=== PATIENT | female | born 1990 | race Caucasian/White ===

== ENCOUNTER 2018-11-25 00:10 | Inpatient (IN) | payer BC ==
[~2018-11-25 00:10] MED LIST: DEXTROSE 5%-LACTATED RINGERS 1,000 ML IV SCH
[2018-11-25 01:43] LABS: BASO % 1.3 % (0-2.0); HEMOGLOBIN 10.8 GM/dL (10.7-15.3); MCH 33.6 pg (25.7-33.7); MCHC 34.9 g/dl (32.0-36.0); MEAN CELL VOLUME 96.5 fl (80-96); MEAN PLT VOLUME 9.8 fl (7.5-11.1); NEUT % 73.7 % (42.8-82.8); PLATELET COUNT 193 K/MM3 (134-434); RBC 3.21 M/mm3 (3.60-5.2); RDW 13.1 % (11.6-15.6); WHITE BLOOD COUNT 11.4 K/mm3 (4.0-10.0)
[2018-11-25 02:07] LABS: ANION GAP 7 MMOL/L (8-16); BLOOD UREA NITROGEN 11 mg/dL (7-18); CALCIUM 8.8 mg/dL (8.5-10.1); CHLORIDE 106 mmol/L (98-107); CO2 24 mmol/L (21-32); CREATININE 0.5 mg/dL (0.55-1.3); GLUCOSE,RANDOM 69 mg/dL (74-106); POTASSIUM 3.8 mmol/L (3.5-5.1); SODIUM 137 mmol/L (136-145)
[2018-11-25 02:15] LABS: INR 0.91 (0.83-1.09); PROTHROMBIN TIME (PATIENT) 10.7 SEC (9.7-13.0)
[2018-11-25 02:17] LABS: ACTIVATED PTT 26.1 SECONDS (25.2-36.5)
--- NOTE | 2018-11-25 03:07 | HP ---
Past Medical History - Admission Chief Complaint: Postdates History of Present Illness: 28 yo @ 40.6 weeks gestation, EDC 11/19/18, sent for induction of labor. Upon admission she was 4cm dilated. She was the artificially ruptured due to evidence of a late deceleration. History Source: Patient Limitations to Obtaining History: No Limitations - Past Medical History ...: 1 ...Para: 0 ...EDC by Lucina: 11/19/18 - Past Surgical History Past Surgical History: Yes: None Hx Myomectomy: No Hx Transabdominal Cerclage: No - Smoking History Smoking history: Current every day smoker Have you smoked in the past 12 months: Yes Aproximately how many cigarettes per day: 6 - Alcohol/Substance Use Hx Alcohol Use: No History of Substance Use: reports: None - Social History Usual Living Arrangement: Yes: With Spouse History of Recent Travel: No Home Medications - Allergies Allergies/Adverse Reactions: Allergies Allergy/AdvReac Type Severity Reaction Status Date / Time albuterol Allergy Intermediate Verified 05/29/15 06:58 BLEACH AdvReac Intermediate Uncoded 05/29/15 06:59 - Home Medications Home Medications: Ambulatory Orders Noreth A-Et Estra/Fe Fumarate [Loestrin 24 Fe Tablet] 1 tab PO DAILY 05/25/15 Ibuprofen [Motrin -] 600 mg PO QID PRN #28 tablet 05/29/15 metroNIDAZOLE 0.75% VAG. GEL [Metrogel 0.75% *Vaginal Gel* -] 1 applic VG HS #1 tube 05/29/15 Family Disease History - Family Disease History Family History: Unremarkable Review of Systems - Review of Systems Constitutional: reports: No Symptoms Eyes: reports: No Symptoms HENT: reports: No Symptoms Neck: reports: No Symptoms Cardiovascular: reports: No Symptoms Respiratory: reports: No Symptoms Gastrointestinal: reports: No Symptoms Genitourinary: reports: Pain Breasts: reports: No Symptoms Reported Musculoskeletal: reports: No Symptoms Integumentary: reports: No Symptoms Neurological: reports: No Symptoms Endocrine: reports: No Symptoms Hematology/Lymphatic: reports: No Symptoms Psychiatric: reports: No Symptoms Pain Intensity: 2 Physical Exam - Maternity Vital Signs: Vital Signs Temperature 97.7 F 11/25/18 01:00 Pulse Rate 97 H 11/25/18 01:00 Respiratory Rate 20 11/25/18 01:00 Blood Pressure 110/55 L 11/25/18 01:00 O2 Sat by Pulse Oximetry (%) Constitutional: Yes: Well Nourished Eyes: Yes: Conjunctiva Clear HENT: Yes: Atraumatic Neck: Yes: Supple Cardiovascular: Yes: Regular Rate and Rhythm Lungs: Clear to auscultation - Abdominal Exam/OB Number of Fetuses: Single Presentation: Vertex Intensity: Mild - Vaginal Exam/OB Dilatation (cm): 4 Effacement (%): 80 Amniotic Membrane Status: Ruptured Amniotic Fluid: Yes: Clear Presentation: Vertex/Position Station: -2 - Physical Exam Musculoskeletal: Yes: WNL Extremities: Yes: WNL ...Motor Strength: WNL Psychiatric: Yes: Alert, Oriented - Labs Lab Results: CBC, BMP 11/25/18 01:25 11/25/18 01:25 Problem List - Problems (1) Post-dates Code(s): O48.0 - POST-TERM Qualifiers: Post-term type: 40-42 weeks gestation Qualified Code(s): O48.0 - Post-term Assessment/Plan Postdates Admit to L&D Analgesia as needed Anticipate
[2018-11-25] MEDS ORDERED: DEXTROSE 5%-LACTATED RINGERS 1,000 ML IV SCH (03:15)
[2018-11-25] MEDS: ELECTROLYTE-148 SOLN 1,000 ML IV SCH ×2 (03:15→06:15)
[2018-11-25 03:19] VITALS: BMI 24.3
[2018-11-25] MEDS ORDERED: FENTANYL/BUPIVACAINE/NS/PF - PCEA - 50 ML DISP.SYRIN EP ONE ×2 (03:40→08:06)
[2018-11-25] MEDS ORDERED: BUPIVACAINE HCL/PF 0.25% (2.5MG/ML) 10 ML VIAL ONE (03:47)
[2018-11-25] MEDS ORDERED: LIDO 2%/EPI 1:200000 PRESRVFRE (20 ML SDVIAL) ONE (03:47)
[2018-11-25] MEDS: FENTANYL/BUPIVACAINE/NS/PF - PCEA - 50 ML DISP.SYRIN EP SCH ×2 (04:10→08:15)
[2018-11-25] MEDS ORDERED: NALOXONE HCL 0.4 MG/ML VIAL IVPUSH PRN (04:12)
[2018-11-25] MEDS ORDERED: TUBERCULIN PPD 5 TU/0.1ML SYRINGE (IN PATIENT USE ONLY) ID ONE (06:30)
[2018-11-25] MEDS ORDERED: OXYTOCIN 20 UNITS in 0.9% NS 20 UNIT/1,000 ML INFUS.BAG IV ONE (10:09)
[2018-11-25] MEDS: D5W-LR W/ 20 UNITS OXYTOCIN 20 UNIT/1,000 ML INFUS.BAG IV SCH ×2 (11:45→18:16)
--- NOTE | 2018-11-25 12:06 | PN ---
Delivery - Delivery Vaginal Delivery: Spontaneous Type of Anesthesia: Epidural Episiotomy/Laceration: 1st degree EBL (cc): 300 Delivery, Single - Stages of Labor Date of Delivery: 11/25/18 Time of Delivery: 11:25 Date Placenta Delivered: 11/25/18 Placenta: Yes: Spontaneous - Condition of Filament Tester/Supervisor Spinning Present: No Infant Gender: Male Position: Right, OA - 1 Minute Total Score: 1 5 Minutes Total Score: 5 10 Minutes Total Score: 8 - Feeding Plan Initial Plan: Elected not to breastfeed exclusively throughout hospitalization Remarks - Remarks Remarks: from GENTRY position across 1st degree laceration anterior shoulder (left) delivered with ease along with remainder of cord clamped and cut baby immediately taken to warmer to be assessed by nursery staff 2/2 recurrent decelerations noted during 2nd stage 1st degree laceration repaired with 2-0 vicryl placenta delivered in tact and spontaneously sponge count correct needle count correct mom stable baby to special care nursery for further evaluation/stabilization
[2018-11-25] MEDS ORDERED: METHYLERGONOVINE MALEATE 0.2 MG/1 ML AMP IM PRN (13:38)
[2018-11-25] MEDS ORDERED: BENZOCAINE 28 GM HEMORRHOIDAL OINTMENT TP PRN (13:38)
[2018-11-25] MEDS ORDERED: WITCH HAZEL 50% (TUCKS) 40 PAD/JAR PAD TP PRN (13:38)
[2018-11-25] MEDS ORDERED: BENZOCAINE 20% 57 GM BOTTLE TP PRN (13:38)
[2018-11-25] MEDS ORDERED: BISACODYL 10 MG SUPP.RECT RC PRN (13:38)
[2018-11-25] MEDS: oxyCODONE HCL 5 MG TABLET PO PRN (13:45)
[2018-11-25 14:57] LABS: BASO % 1.2 % (0-2.0); EOS % 0.1 % (0-4.5); HEMATOCRIT 27.2 % (32.4-45.2); HEMOGLOBIN 9.3 GM/dL (10.7-15.3); LYMPH % 4.3 % (8-40); MCH 33.3 pg (25.7-33.7); MCHC 34.4 g/dl (32.0-36.0); MEAN CELL VOLUME 96.8 fl (80-96); MEAN PLT VOLUME 9.6 fl (7.5-11.1); MONO % 8.1 % (3.8-10.2); NEUT % 86.3 % (42.8-82.8); PLATELET COUNT 137 K/MM3 (134-434); RBC 2.81 M/mm3 (3.60-5.2); RDW 13.2 % (11.6-15.6); WHITE BLOOD COUNT 15.9 K/mm3 (4.0-10.0)
[2018-11-25] MEDS ORDERED: HYDROmorphone HCl 2 MG/ML VIAL IVPB ONE (17:06)
[2018-11-25 19:30] LABS: BASO % 0.2 % (0-2.0); EOS % 0.1 % (0-4.5); HEMATOCRIT 25.7 % (32.4-45.2); LYMPH % 4.7 % (8-40); MCH 33.2 pg (25.7-33.7); MCHC 34.9 g/dl (32.0-36.0); MEAN CELL VOLUME 95.4 fl (80-96); MEAN PLT VOLUME 9.6 fl (7.5-11.1); MONO % 7.4 % (3.8-10.2); NEUT % 87.6 % (42.8-82.8); PLATELET COUNT 162 K/MM3 (134-434); RDW 13.3 % (11.6-15.6); WHITE BLOOD COUNT 20.6 K/mm3 (4.0-10.0)
[2018-11-25] MEDS ORDERED: IBUPROFEN 800 MG/8 ML IJ IVPB PRN (20:38)
[2018-11-25] MEDS: HYDROmorphone HCl 2 MG/ML VIAL IVPB PRN (21:23)
[2018-11-25 21:46] LABS: BASO % 0.1 % (0-2.0); EOS % 0.3 % (0-4.5); HEMATOCRIT 25.2 % (32.4-45.2); HEMOGLOBIN 8.9 GM/dL (10.7-15.3); LYMPH % 5.9 % (8-40); MCH 34.3 pg (25.7-33.7); MCHC 35.3 g/dl (32.0-36.0); MEAN CELL VOLUME 97.1 fl (80-96); MEAN PLT VOLUME 9.8 fl (7.5-11.1); MONO % 6.9 % (3.8-10.2); NEUT % 86.8 % (42.8-82.8); PLATELET COUNT 150 K/MM3 (134-434); RBC 2.59 M/mm3 (3.60-5.2); RDW 13.4 % (11.6-15.6); WHITE BLOOD COUNT 19.8 K/mm3 (4.0-10.0)
[2018-11-26] MEDS: HYDROmorphone HCl 2 MG/ML VIAL IVPB PRN ×4 (01:19→23:32)
--- NOTE | 2018-11-26 07:29 | PN ---
Post Progress Note - Subjective Subjective: Pt seen/evaluated. Complains of labial pain. Has massive labial edema noted approx 1-2 hours after delivery. Stable. Ice packs and IV pain meds helping with discomfort. Type of Delivery: Vital Signs: Vital Signs Temperature 97.9 F 11/26/18 05:40 Pulse Rate 76 11/26/18 05:40 Respiratory Rate 20 11/26/18 05:40 Blood Pressure 100/45 L 11/26/18 05:40 O2 Sat by Pulse Oximetry (%) 100 11/25/18 13:00 Uterus: Yes: Fundus Firm Abdomen/GI: No: Abdominal Distention Lochia, amount: Small Extremities: Yes: Calves non-tender Perineum: Yes: Laceration (1st degree vaginal - perineum in tact) - Labs Labs: CBC WBC 19.8 K/mm3 (4.0-10.0) H 11/25/18 21:00 RBC 2.59 M/mm3 (3.60-5.2) L 11/25/18 21:00 Hgb 8.9 GM/dL (10.7-15.3) L 11/25/18 21:00 Hct 25.2 % (32.4-45.2) L 11/25/18 21:00 MCV 97.1 fl (80-96) H 11/25/18 21:00 MCH 34.3 pg (25.7-33.7) H 11/25/18 21:00 MCHC 35.3 g/dl (32.0-36.0) 11/25/18 21:00 RDW 13.4 % (11.6-15.6) 11/25/18 21:00 Plt Count 150 K/MM3 (134-434) 11/25/18 21:00 MPV 9.8 fl (7.5-11.1) 11/25/18 21:00 Absolute Neuts (auto) 17.2 K/mm3 (1.5-8.0) H 11/25/18 21:00 Total Counted 100 11/25/18 18:30 Neutrophils % 86.8 % (42.8-82.8) H 11/25/18 21:00 Neutrophils % (Manual) 78.0 % (42.8-82.8) 11/25/18 18:30 Band Neutrophils % 12.0 % 11/25/18 18:30 Lymphocytes % 5.9 % (8-40) L D 11/25/18 21:00 Lymphocytes % (Manual) 4.0 % (8-40) L 11/25/18 18:30 Monocytes % 6.9 % (3.8-10.2) 11/25/18 21:00 Monocytes % (Manual) 4 % (3.8-10.2) 11/25/18 18:30 Eosinophils % 0.3 % (0-4.5) D 11/25/18 21:00 Basophils % 0.1 % (0-2.0) 11/25/18 21:00 Nucleated RBC % 0 % (0-0) 11/25/18 21:00 Hypochromia 1+ 11/25/18 18:30 Microcytosis 1+ 11/25/18 18:30 Problem List - Problems (1) Edema of vulva Code(s): N90.89 - OTH NONINFLAMMATORY DISORDERS OF VULVA AND PERINEUM (2) Normal vaginal delivery Code(s): O80 - ENCOUNTER FOR FULL-TERM UNCOMPLICATED DELIVERY Assessment/Plan PT overall feeling improved. Continue ice packs to vulva for edema - Hgb stable, do not suspect expanding hematoma. Discussed conservative management. Pt desires conservative managment for now, if no improvement or if suspicion for skin compromise may consider I&D. Continue compression/ice packs/sitz baths/pain meds. regular diet continue with clark - do not DC encourage OOB today
[2018-11-26 08:14] LABS: BASO % 0.2 % (0-2.0); EOS % 0.9 % (0-4.5); HEMATOCRIT 24.7 % (32.4-45.2); HEMOGLOBIN 8.4 GM/dL (10.7-15.3); LYMPH % 12.3 % (8-40); MEAN CELL VOLUME 97.1 fl (80-96); MEAN PLT VOLUME 9.7 fl (7.5-11.1); MONO % 5.3 % (3.8-10.2); NEUT % 81.3 % (42.8-82.8); PLATELET COUNT 145 K/MM3 (134-434); RBC 2.54 M/mm3 (3.60-5.2); RDW 13.5 % (11.6-15.6)
[2018-11-27] MEDS: D5W-LR W/ 20 UNITS OXYTOCIN 20 UNIT/1,000 ML INFUS.BAG IV SCH (03:18)
[2018-11-27] MEDS: IBUPROFEN 600 MG TABLET (FP) PO PRN ×4 (03:36→23:12)
[2018-11-27] MEDS: ACETAMINOPHEN 325 MG TABLET (FP) PO PRN ×4 (03:37→23:12)
[2018-11-27] MEDS: oxyCODONE HCL 5 MG TABLET PO PRN (18:19)
--- NOTE | 2018-11-27 21:07 | PN ---
Post Progress Note Post Day: 1 Type of Delivery: Vital Signs: Vital Signs Temperature 98.1 F 11/27/18 09:17 Pulse Rate 91 H 11/27/18 09:17 Respiratory Rate 20 11/27/18 09:17 Blood Pressure 114/62 11/27/18 09:17 O2 Sat by Pulse Oximetry (%) 100 11/25/18 13:00 Breast Exam: Yes: Soft Uterus: Yes: Fundus Firm Abdomen/GI: Yes: Abdomen soft, Tolerating PO Lochia: Yes: Rubra Lochia, amount: Moderate Extremities: Yes: Calves non-tender Perineum: No: Intact (Swollen perineum) - Labs Labs: CBC WBC 15.0 K/mm3 (4.0-10.0) H 11/26/18 07:30 RBC 2.54 M/mm3 (3.60-5.2) L 11/26/18 07:30 Hgb 8.4 GM/dL (10.7-15.3) L 11/26/18 07:30 Hct 24.7 % (32.4-45.2) L 11/26/18 07:30 MCV 97.1 fl (80-96) H 11/26/18 07:30 MCH 33.0 pg (25.7-33.7) 11/26/18 07:30 MCHC 34.0 g/dl (32.0-36.0) 11/26/18 07:30 RDW 13.5 % (11.6-15.6) 11/26/18 07:30 Plt Count 145 K/MM3 (134-434) 11/26/18 07:30 MPV 9.7 fl (7.5-11.1) 11/26/18 07:30 Absolute Neuts (auto) 12.2 K/mm3 (1.5-8.0) H 11/26/18 07:30 Total Counted 100 11/25/18 18:30 Neutrophils % 81.3 % (42.8-82.8) 11/26/18 07:30 Neutrophils % (Manual) 78.0 % (42.8-82.8) 11/25/18 18:30 Band Neutrophils % 12.0 % 11/25/18 18:30 Lymphocytes % 12.3 % (8-40) D 11/26/18 07:30 Lymphocytes % (Manual) 4.0 % (8-40) L 11/25/18 18:30 Monocytes % 5.3 % (3.8-10.2) 11/26/18 07:30 Monocytes % (Manual) 4 % (3.8-10.2) 11/25/18 18:30 Eosinophils % 0.9 % (0-4.5) D 11/26/18 07:30 Basophils % 0.2 % (0-2.0) 11/26/18 07:30 Nucleated RBC % 0 % (0-0) 11/26/18 07:30 Hypochromia 1+ 11/25/18 18:30 Microcytosis 1+ 11/25/18 18:30 Problem List - Problems (1) Post-dates Code(s): O48.0 - POST-TERM Qualifiers: Post-term type: 40-42 weeks gestation Qualified Code(s): O48.0 - Post-term Assessment/Plan Status post vaginal delivery Swollen perineum Vaginal ice pack Analgesia as needed Continue observation
[2018-11-27] MEDS: SENNOSIDES/DOCUSATE COMBO (SENNA PLUS) TABLET (UD) PO PRN (23:12)
[2018-11-28] MEDS: IBUPROFEN 600 MG TABLET (FP) PO PRN ×2 (04:59→20:07)
[2018-11-28] MEDS: ACETAMINOPHEN 325 MG TABLET (FP) PO PRN ×2 (05:00→20:08)
--- NOTE | 2018-11-28 07:25 | PN ---
Post Note - Post Date of Delivery: 11/25/18 Vital Signs: Vital Signs - 24 hr 11/27/18 11/27/18 09:17 23:19 Temperature 98.1 F 97.6 F Pulse Rate 91 H 91 H Respiratory 20 17 Rate Blood Pressure 114/62 119/68 - Subjective Subjective: No Complaints - Objective Breast: Not engorged Abdomen: Soft, Non-tender Uterus: Fundus firm, Non-tender Vagina: Other (vulvar edema) Extremities: Non-tender - Assessment/Plan (2) Normal vaginal delivery Assessment: S/P Normal , Other (vulvar edema) Plan: Routine Care
[2018-11-28] MEDS: SENNOSIDES/DOCUSATE COMBO (SENNA PLUS) TABLET (UD) PO PRN (21:47)
[2018-11-29] MEDS ORDERED: oxyCODONE HCL 5 MG TABLET ONE (03:04)
[2018-11-29 12:06] VITALS: BP 130/78; PULSE 88; TEMP 98
== END 2018-11-29 13:30 | disposition home or self-care (01) | DRG 807 ==
LOC: JLDR 00:10 → J3W 14:38
PROVIDERS: ADMIT Obstetrics & Gynecology; ATTEND Obstetrics & Gynecology
PROC: 10E0XZZ Delivery of Products of Conception, External Approach (ICD-10-PCS; principal; 2018-11-25)
PROC: 0W8NXZZ Division of Female Perineum, External Approach (ICD-10-PCS; 2018-11-25)
PROC: 0HQ9XZZ Repair Perineum Skin, External Approach (ICD-10-PCS; 2018-11-25)
DX: O70.0 First degree perineal laceration during delivery (principal); Z37.0 Single live birth; O48.0 Post-term pregnancy; O26.893 Other specified pregnancy related conditions, third trimester; N90.89 Other specified noninflammatory disorders of vulva and perineum; Z3A.40 40 weeks gestation of pregnancy
CPT/HCPCS: 36415; 59409; 80048; 85025; 85610; 85730; 86593; 86850; 86900; 86901